=== PATIENT | female | born 1955 | race Caucasian/White ===

== ENCOUNTER 2024-01-09 08:08 | Inpatient (IN) | payer OTHER, MEDICAID, SELFPAY ==
[2024-01-09] VITALS (48 sets, daily range): BP systolic 99–166; BP diastolic 48–142; PULSE 65–109; RESP 16–20; TEMP 36.5–37.6; O2SAT 95–100
--- NOTE | 2024-01-09 08:45 | ED.GENADUL_ITS ---
Discharge Plan Disposition Patient Disposition: Admit to [facility] Condition: Stable Discharge Details Clinical Impression: GI bleeding Admit Date/Time: 01/09/24 12:15 Admit Provider: Alfredo Bain Attending Provider: Alfredo Bain Primary Care Provider: Humza Varghese ED Provider: Joe Echevarria HPI General Date/Time Provider Initiated Documentation: 01/09/24 08:12 . HPI Narrative: 68 year-old female presents to ED today by POV/ambulating with her family with a chief complaint of dark stools, some maroon blood with BM this morning with onset only today- denies history of black/bloody stools. Quality described as not painful, states had some dizziness, but questions whether it was psychogenic from seeing the blood, no radiation to chest pain, palpiations, fainting, fever, recent GI illness, nausea/vomiting. Patient has had a colonoscopy many years ago- endorses history of GI bleeding. Severity is described as unable to quantify- not painful. Palliating factors include nothing specific attempted. Provoking factors include nothing specific. Patient not anticoagulated. Related Data Home Medications Medication Instructions Recorded Confirmed aspirin 81 mg tablet,delayed 81 mg PO DAILY 09/26/13 01/09/24 release duloxetine 60 mg capsule,delayed 60 mg PO DAILY 09/26/13 01/09/24 release (Cymbalta) lisinopril 5 mg tablet 5 mg PO DAILY 09/26/13 01/09/24 metformin 1,000 mg tablet 1,000 mg PO BID 09/26/13 01/09/24 simvastatin 40 mg tablet 40 mg PO DAILY 09/26/13 01/09/24 valacyclovir 500 mg tablet 500 mg PO PRN PRN 09/26/13 01/09/24 (Valtrex) amlodipine 10 mg tablet 10 mg PO DAILY 11/12/23 01/09/24 gabapentin 400 mg capsule 400 mg PO TID 11/12/23 01/09/24 ipratropium 0.5 mg-albuterol 3 mg 3 ml inhalation QID PRN 11/12/23 01/09/24 (2.5 mg base)/3 mL nebulization soln umeclidinium 62.5 mcg-vilanterol 1 inh inhalation DAILY 11/12/23 01/09/24 25 mcg/actuation powdr for inhalation (Anoro Ellipta) albuterol sulfate 90 mcg/actuation 2 puff inhalation Q6H PRN 12/23/23 01/09/24 aerosol inhaler azithromycin 250 mg tablet 250 mg PO DAILY #90 tabs 12/23/23 01/09/24 budesonide 160 mcg-glycopyr 9 2 inh inhalation BID 30 days #10.7 12/23/23 01/09/24 mcg-formot 4.8 mcg/actuation HFA grams inhaler (Breztri Aerosphere) Previous Rx's Medication Instructions Recorded azithromycin 250 mg tablet 250 mg PO DAILY #90 tabs 12/23/23 budesonide 160 mcg-glycopyr 9 2 inh inhalation BID 30 days #10.7 12/23/23 mcg-formot 4.8 mcg/actuation HFA grams inhaler (Breztri Aerosphere) Allergies Allergy/AdvReac Type Severity Reaction Status Date / Time No Known Allergies Allergy Unverified 01/09/24 08:22 General Stated Complaint: GI Bleed ZAC: 3 Review of Systems All systems reviewed & are unremarkable except as noted in HPI and below Exam Narrative Exam Narrative: GENERAL APPEARANCE: Well-nourished, non-toxic, awake and alert, atraumatic, no acute distress. SKIN: Warm, pink, dry, intact, without rashes/lesions/ulcerations. HEAD: Normocephalic, atraumatic, normal hair distribution for gender/age. EYES: Pupils PERRLA, EOMs intact without nystagmus, normal conjunctiva, no exudates on lids/lashes. ENT: Nares patent, no circumoral cyanosis, no facial swelling NECK: Supple, trachea midline, painless cervical ROM. LUNGS/CHEST: Lungs CTA bilaterally- no rhonchi/rales/wheezes diffusely, non- labored respirations, normal A/P diameter, symmetrical expansion, no chest wall deformity HEART (CV/PV): Regular rate and rhythm without murmur, no peripheral edema, no JVD. ABDOMEN: Soft, non-distended, no guarding, no tenderness. MSK: Normal ROM, no swelling/deformity to bilateral UEs or LEs, moving all extremities without weakness, no cyanosis, spine midline without tenderness, normal curvature. NEURO: Mental Status AAOx4 - alert to person, place, time, events No facial droop, no forehead involvement. Motor: No focal weakness - strength 5/5 in bilateral UEs and LEs, proximal and distal, symmetric. Sensory: sensation intact to light touch globally. Gait normal: patient ambulated without ataxia into ED room. PSYCH: euthymic, cooperative, pleasant, appropriate speech Course Vital Signs Vital signs: Vital Signs Temperature 36.5 C 01/09/24 08:19 Pulse 76 01/09/24 08:19 Respiratory Rate 16 01/09/24 08:19 Blood Pressure 99/52 L 01/09/24 08:19 Pulse Oximetry 98 01/09/24 08:19 Temperature 36.5 C 01/09/24 08:19 Temperature Source Temporal Artery Scan 01/09/24 08:19 Pulse 76 01/09/24 08:19 Respiratory Rate 16 01/09/24 08:19 Blood Pressure 99/52 L 01/09/24 08:19 Pulse Oximetry 98 01/09/24 08:19 Oxygen Delivery Method Nasal Cannula 01/09/24 08:19 Oxygen Flow Rate 3 01/09/24 08:19 Medical Decision Making This dictation utilizes [id number] dictation software and may contain unedited grammatical errors. 68 y/o F presents to ED today with a chief complaint of dark stools with some maroon blood in toilet this morning with BM- denies nausea/vomiting, denies fever, denies ABD pain, states no known history of GI bleeding. Patients' medical history: chronic hypoxic respiratory failure on 2-4L O2 01/06, HTN, an emia, COPD, t2DM. Family and social history: Endorses past history of heavy ETOH use, history heavy smoking, no recent travel, no sick contacts. Pertinent exam findings / vital signs include stable nontoxic vitals, benign abdomen, benign cardiopulmonary exam, neuro intact. Differential / pathologies of concern include GI Bleeding, Hemorrhoids, PUD/Gastritis. Diagnostic studies of: -CBC, CMP, Lipase, Lactate, Liver Panel, PT/INR, UA, Mg++, CTA ABD/Pelvis. 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 Suspect lower GI bleeding, she was found to be anemic on arrival with stable vitals, I did provide 1 L IV fluids with a recheck of H&H with a significant drop of over a gram of hemoglobin, CTA of the abdomen pelvis shows no overt GI bleeding, no liver abnormality to account for elevated LFTs. Patient has not provided urine sample by time of admission. I did consult with surgery Dr. Sepulveda, he recommends medicine admit with surgery consult. I spoke with Dr. Bain who accepted the patient for admission, patient is full code. Patient is consented for blood products and is receiving 2 units of packed RBCs here in the department as well as IV Protonix, stable vitals throughout visit. Disposition of GI Bleeding. Patient verbalized understanding of the plan and return to ED criteria and engaged in shared decision making. Medical Records Medical records reviewed: Yes I reviewed the patient's medical records. Imaging Data Radiologic Study: Attestation: I personally reviewed and interpreted this imaging study as follows: Imaging: CT Scan Radiologist's impression: Exam: CTA Abdomen and Pelvis With Contrast Exam date and time: 01/09/2024 10:12 AM Age: 68 years old Clinical indication: Other: Gi bleed; Prior surgery; Surgery date: 6+ months; Surgery type: Cholecystectomy appendectomy hyserectomy TECHNIQUE: Imaging protocol: Computed tomographic angiography of the abdomen and pelvis with contrast. Exam focused on the arteries. 3D rendering (Not supervised by radiologist): MIP and/or 3D reconstructed images were created by the technologist. Contrast material: OMNIPAQUE 350; Contrast volume: 60 ml; Contrast route: INTRAVENOUS (IV); COMPARISON: CT CHEST WO CONTRAST 02/05/2023 2:54 PM FINDINGS: Lungs: There are atelectatic changes in the right lung base. Aorta: There are vascular calcifications of the descending thoracic aorta. Celiac trunk and mesenteric arteries: No occlusion or significant stenosis. Renal arteries: No occlusion or significant stenosis. Right iliac arteries: No occlusion or significant stenosis. Left iliac arteries: No occlusion or significant stenosis. Liver: No mass. Gallbladder and bile ducts: Post cholecystectomy. There is mild intra and extrahepatic biliary dilatation with no obstructing masses, likely post cholecystectomy. Pancreas: Unremarkable. No mass. No ductal dilation. Spleen: Unremarkable. No splenomegaly. Adrenal glands: Unremarkable. No mass. Kidneys and ureters: Multiple left renal cortical hypodense lesions representing cysts measuring up to 1.5 cm. No left hydronephrosis. Post right nephrectomy. Stomach and bowel: Unremarkable. No obstruction. No mucosal thickening. Appendix: Post appendectomy. Intraperitoneal space: Unremarkable. No free air. No significant fluid collection. Lymph nodes: Unremarkable. No enlarged lymph nodes. Urinary bladder: Unremarkable. No mass. Reproductive: Post hysterectomy. Bones/joints: Mild degenerative disease of bilateral sacroiliac joints. Moderate degenerative disease at L2-L3 with disc space narrowing, endplate sclerosis, endplate osteophytes and cystic changes. There is mild retrolisthesis at L2-L3. Posterior disc bulge causing mild L2-L3 thecal sac compression. Mild bilateral hip joint degenerative disease. Mild degenerative disease of the symphysis pubis. There is a curvature of the lumbar spine convex to the left. Soft tissues: Unremarkable. Other findings: There are vascular calcifications. IMPRESSION: 1. No evidence of active GI bleed. 2. No intra-abdominal hematomas. Dictated and Authenticated by: Jovanni Bledsoe MD. Ordering:JORGE Diaz MD Lab Data Lab results reviewed: Yes I reviewed the patient's lab results. Labs: Laboratory Tests Range/Units 01/09/24 01/09/24 08:40 11:07 WBC (4.4-10.8) 10^3/uL 7.25 RBC (3.93-5.22) 10^6/uL 2.83 L Hgb (11.2-15.7) g/dL 8.3 L 7.1 L Hct (36.0-46.0) % 26.2 L 22.6 L MCV (80-95) fL 93 MCH (27.0-33.0) pg 29.3 MCHC (32.0-36.0) % 31.7 L RDW (11.7-14.6) % 16.3 H Plt Count (130-400) 10^3/uL 304 216 MPV (8.0-11.0) fL 8.6 Immature Gran % 0.1 Neutrophils % 54.1 Lymphocytes % 31.3 Monocytes % 7.3 Eosinophils % 6.5 Basophils % 0.7 Nucleated RBC % (0.0-0.3) % 0.0 Absolute Neutrophils (1.2-6.7) 10^3/uL 3.92 Absolute Lymphocytes (1.2-3.4) 10^3/uL 2.27 Absolute Monocytes (0.1-0.8) 10^3/uL 0.53 Absolute Eosinophils (0.0-0.7) 10^3/uL 0.47 Absolute Basophils (0.0-0.2) 10^3/uL 0.05 ESR (0-30) mm/hr 8 PT (9.1-11.1) sec 10.5 INR (0.9-1.1) 1.0 APTT (23.6-32.8) sec 25.5 VBG Lactate (0.6-1.4) mmol/L 1.8 H Sodium (136-145) mmol/L 140 Potassium (3.5-5.1) mmol/L 4.9 Chloride (98-107) mmol/L 104 Carbon Dioxide (21.0-32.0) mmol/L 29.6 Anion Gap (3-11) mmol/L 6.4 BUN (7-18) mg/dL 31 H Creatinine (0.55-1.02) mg/dL 1.3 H Est GFR (CKD-EPI 2020) (mL/min/1.73m2) 44.51 Glucose (74-106) mg/dL 133 H Calcium (8.5-10.1) mg/dL 8.3 L Magnesium (1.8-2.4) mg/dL 2.2 Total Bilirubin (0.2-1.0) mg/dL 0.5 Conjugated Bilirubin (0.0-0.2) mg/dL 0.2 AST (15-37) U/L 283 H ALT (14-59) U/L 393 H Alkaline Phosphatase (46-116) U/L 285 H C-Reactive Protein (<or=0.5) mg/dL < 0.50 Total Protein (6.4-8.2) g/dL 7.1 Albumin (3.4-5.0) g/dL 3.5 Lipase (16-77) U/L 20 Patient ABO/Rh O Positive Antibody Screen NEGATIVE Quality:SDOH Health Related Social Needs: No Data to Display PFSH All Active Problems (Updated 01/09/24 @ 12:23 by CIRILO Marrero) GI bleeding (Chronic) Former cigarette smoker (Acute) Chronic hypoxic respiratory failure (Acute) Polysubstance abuse (Acute) Pneumonia (Acute) Nicotine dependence (Acute) Joint pain (Acute) Dyslipidemia (Acute) Diabetes mellitus (Chronic) COPD (chronic obstructive pulmonary disease) (Chronic) Benign essential hypertension (Acute) Anemia (Chronic) ADHD (Acute) Acute respiratory failure with hypercapnia (Acute) with hypoxia Abnormal weight loss (Acute) Medical History (Updated 01/09/24 @ 12:23 by CIRILO Marrero) COVID-19 Hx of mammogram 05/30/2011 Surgical History (Updated 11/12/23 @ 11:33 by Vandana Leger) History of cholecystectomy History of appendectomy Hx of total hysterectomy 11/09/98 History of colonoscopy 02/10/07 Cataract cataract surgery left eye 09/29/13 Family History (Updated 11/12/23 @ 11:16 by Vandana Leger) Sister Coronary arteriosclerosis Diabetes HLP (hyperkeratosis lenticularis perstans) History of cancer Mother Myocardial infarction History of cancer Father History of cancer Myocardial infarction Social History (Updated 11/12/23 @ 11:12 by Vandana Leger) Smoking/Tobacco Use Status: Former Tobacco Use Smoking risk assessment performed?: Yes Alcohol Intake: former Details: Quit in 2010.Hx of ETOH abuse. Drug use: Never Additional Social history: Former tobacco user:1/2ppd Pt states hasn't smoked in 4 days. Comments started at age 12. 1.5ppd>30yrs
[2024-01-09] MEDS: Normal Saline 1,000 ML 1000 ML IV (08:56)
[2024-01-09 08:58] LABS: Lactate 1.8 mmol/L (0.6-1.4)
[2024-01-09 09:00] LABS: Abs Immature Grans 0.01 10^3/uL (0.0-0.06); Absolute Basophil Count 0.05 10^3/uL (0.0-0.2); Absolute Eosinophil Count 0.47 10^3/uL (0.0-0.7); Absolute Lymphocyte Count 2.27 10^3/uL (1.2-3.4); Absolute Monocyte Count 0.53 10^3/uL (0.1-0.8); Absolute Neutrophil Count 3.92 10^3/uL (1.2-6.7); Basophils % 0.7; Eosinophils % 6.5; HCT 26.2 % (36.0-46.0); HGB 8.3 g/dL (11.2-15.7); Immature Grans % 0.1; Lymphocytes % 31.3; MCH 29.3 pg (27.0-33.0); MCHC 31.7 % (32.0-36.0); MCV 93 fL (80-95); MPV 8.6 fL (8.0-11.0); Monocytes % 7.3; Neutrophils % 54.1; Platelet Count 304 10^3/uL (130-400); RBC 2.83 10^6/uL (3.93-5.22); RDW 16.3 % (11.7-14.6); RDW-SD 54.8 fL; WBC 7.25 10^3/uL (4.4-10.8)
[2024-01-09 09:02] LABS: ESR 8 mm/hr (0-30)
[2024-01-09 09:13] LABS: PTT Activated 25.5 sec (23.6-32.8); Prothrombin Time 10.5 sec (9.1-11.1)
[2024-01-09 09:16] LABS: ALT 393 U/L (14-59); AST 283 U/L (15-37); Albumin 3.5 g/dL (3.4-5.0); Alkaline Phosphatase 285 U/L (46-116); Anion Gap 6.4 mmol/L (3-11); BUN 31 mg/dL (7-18); Bilirubin, Direct 0.2 mg/dL (0.0-0.2); Bilirubin, Total 0.5 mg/dL (0.2-1.0); C-Reactive Protein < 0.50 mg/dL (<or=0.5); CO2 29.6 mmol/L (21.0-32.0); CREATININE 1.3 mg/dL (0.55-1.02); Calcium 8.3 mg/dL (8.5-10.1); Chloride 104 mmol/L (98-107); Estimated GFR 44.51 (mL/min/1.73m2); Glucose 133 mg/dL (74-106); Lipase 20 U/L (16-77); Magnesium 2.2 mg/dL (1.8-2.4); Potassium 4.9 mmol/L (3.5-5.1); Sodium 140 mmol/L (136-145); Total Protein 7.1 g/dL (6.4-8.2)
--- NOTE | 2024-01-09 09:44 | DI.CT_ITS ---
Exam(s) CT ABDOMEN PELVIS CTA EXAM: CT ABDOMEN PELVIS CTA CLINICAL HISTORY: GI Bleeding. TECHNIQUE: Imaging Protocol: Axial CT angiography was performed with multi-slice acquisition and m ulti-planar, MIP and/or 3D reconstructions. Pre contrast images and venous phase images also perform ed. CONTRAST MATERIAL: Intravenous: Omnipaque 350 Contrast volume:100 mL Oral: no COMPARISON: CT ABD PELVIS WITH CONTRAST from 04/09/[address] CHEST WO CONTRAST from 02/05/2023 FINDINGS: Vascular Structures: Celiac [place]:No evidence of stenosis. SMA: No evidence of stenosis. Left renal artery: No evidence of stenosis. There is a single renal artery perfusing the left kidney. Aorta: No aneurysm. No dissection. Atherosclerotic changes, moderate. No significant stenosis. Iliac Arteries: No evidence of stenosis. Mild tomato atherosclerotic changes. Common Femoral Arteries: No evidence of stenosis. Soft Tissues:Unremarkable. Lung bases:No acute findings. Liver: Normal size. Normal density. No measurable mass. Metallic densities again noted posterior t o liver. Gallbladder and biliary tract: Status post cholecystectomy. Mild biliary dilation, unchanged. Consi stent with post cholecystectomy.. Pancreas: Normal density, no abnormal calcifications or inflammatory process. Spleen: Normal. Kidneys: Single left kidney again noted. No obstructive uropathy. No suspicious masses seen. No evid ence of calculi. Retroaortic left renal vein. Adrenal glands: No masses seen. Bladder: No gross wall thickening. No evidence of calculi. No evidence of mass. Bowel: Cecum again lies low in the posterior pelvis. Scattered diverticula. No evidence of divertic ulitis. Normal quantity of stool. No obstruction or bowel wall thickening. Peritoneal cavity: No ascites. No focal collection. No mesenteric inflammatory response. Bones: No acute findings. Degenerative changes at L2-3. Mild levoscoliosis. Lymph nodes: Within normal limits. Reproductive: Unremarkable. IMPRESSION: No evidence of active GI bleed. No areas of bowel wall thickening or inflammation.. Mild diverticul osis. No evidence of diverticulitis. Moderate atherosclerotic changes of the abdominal aorta without significant stenosis. No significant branch vessel stenosis. RADIATION DOSE DELIVERED: Total DLP DATA REPOSITORY: All CT scans at this facility are submitted to the National Radiology Data Registry (NRDR) Dose Index Registry (DIR) with the [employer] (ACR). RADIATION OPTIMIZATION: All CT scans at this facility use at least one of these dose optimization te chniques: automated exposure control; mA and/or kV adjustment per patient size (includes targeted exa ms where dose is matched to clinical indication); or iterative reconstruction.
[2024-01-09] MEDS: Normal Saline - Diluent 50 ML VIAL IJ (10:18)
[2024-01-09] MEDS: Omnipaque 350 MG/ML 100 ML BTL IJ (10:20)
--- NOTE | 2024-01-09 11:03 | DI.VRAD_ITS ---
PROCEDURE INFORMATION: Exam: CTA Abdomen and Pelvis With Contrast Exam date and time: 01/09/2024 10:12 AM Age: 68 years old Clinical indication: Other: Gi bleed; Prior surgery; Surgery date: 6+ months; Surgery type: Cholecystectomy appendectomy hyserectomy TECHNIQUE: Imaging protocol: Computed tomographic angiography of the abdomen and pelvis with contrast. Exam focused on the arteries. 3D rendering (Not supervised by radiologist): MIP and/or 3D reconstructed images were created by the technologist. Contrast material: OMNIPAQUE 350; Contrast volume: 60 ml; Contrast route: INTRAVENOUS (IV); COMPARISON: CT CHEST WO CONTRAST 02/05/2023 2:54 PM FINDINGS: Lungs: There are atelectatic changes in the right lung base. Aorta: There are vascular calcifications of the descending thoracic aorta. Celiac trunk and mesenteric arteries: No occlusion or significant stenosis. Renal arteries: No occlusion or significant stenosis. Right iliac arteries: No occlusion or significant stenosis. Left iliac arteries: No occlusion or significant stenosis. Liver: No mass. Gallbladder and bile ducts: Post cholecystectomy. There is mild intra and extrahepatic biliary dilatation with no obstructing masses, likely post cholecystectomy. Pancreas: Unremarkable. No mass. No ductal dilation. Spleen: Unremarkable. No splenomegaly. Adrenal glands: Unremarkable. No mass. Kidneys and ureters: Multiple left renal cortical hypodense lesions representing cysts measuring up to 1.5 cm. No left hydronephrosis. Post right nephrectomy. Stomach and bowel: Unremarkable. No obstruction. No mucosal thickening. Appendix: Post appendectomy. Intraperitoneal space: Unremarkable. No free air. No significant fluid collection. Lymph nodes: Unremarkable. No enlarged lymph nodes. Urinary bladder: Unremarkable. No mass. Reproductive: Post hysterectomy. Bones/joints: Mild degenerative disease of bilateral sacroiliac joints. Moderate degenerative disease at L2-L3 with disc space narrowing, endplate sclerosis, endplate osteophytes and cystic changes. There is mild retrolisthesis at L2-L3. Posterior disc bulge causing mild L2-L3 thecal sac compression. Mild bilateral hip joint degenerative disease. Mild degenerative disease of the symphysis pubis. There is a curvature of the lumbar spine convex to the left. Soft tissues: Unremarkable. Other findings: There are vascular calcifications. IMPRESSION: 1. No evidence of active GI bleed. 2. No intra-abdominal hematomas. Dictated and Authenticated by: Jovanni Bledsoe MD. Ordering:JORGE Diaz MD
[2024-01-09 11:18] LABS: HCT 22.6 % (36.0-46.0); HGB 7.1 g/dL (11.2-15.7); Platelet Count 216 10^3/uL (130-400)
[2024-01-09] MEDS: diphenhydrAMINE 25 MG CAP PO (12:25)
[2024-01-09] MEDS: Pantoprazole 40 MG VIAL 80 MG IVP (12:26)
--- NOTE | 2024-01-09 13:56 | W.PM.HP.N ---
Date of service: 01/09/24 Time of Service: 13:56 Assessment and Plan Assessment and plan (1) GI bleeding: Status: Chronic Assessment and plan: Per my discussion with the general surgeon Dr. Go Sepulveda, he does not plan on doing upper and lower endoscopy during this hospitalization unless she has a severe life-threatening bleed which cannot be controlled. I will treat the patient with PPI GI prophylaxis to protect her upper GI tract. Presuming that this is lower GI bleeding based on her description of maroon-colored stool with clots and the lack of abdominal pain. This is probably diverticular bleeding however cannot exclude possible underlying malignancy given former smoking history. Last colonoscopy was more than 10 years ago. I explained her that we would treat the bleeding with transfusions and arrange for outpatient follow-up with the surgeon for upper and lower endoscopy. Patient is completing her second unit of blood. Will check an H&H now and monitor for 6 hours for the next 18 hours and if there is no further bleeding she will be discharged home tomorrow. Qualifiers: GI bleed type/associated pathology: anorectal hemorrhage Qualified Code(s): K62.5 - Hemorrhage of anus and rectum (2) Diabetes mellitus: Status: Chronic Assessment and plan: I will hold her metformin for now and monitor her blood sugars ACHS and cover with low-dose NovoLog sliding scale. Qualifiers: Diabetes mellitus complication status: without complication Diabetes mellitus terminal superintendent insulin use: without skilled nursing use Diabetes mellitus type: type 2 Qualified Code(s): E11.9 - Type 2 diabetes mellitus without complications (3) COPD (chronic obstructive pulmonary disease): Status: Chronic Assessment and plan: Not currently experiencing acute exacerbation. She is home oxygen dependent at 3 L at rest and 4 L with activity but is not chronically on systemic corticosteroids although she uses inhaled corticosteroids. Qualifiers: COPD type: unspecified COPD Qualified Code(s): J44.9 - Chronic obstructive pulmonary disease, unspecified (4) Benign essential hypertension: Status: Acute Assessment and plan: Monitor blood pressure continue her current home blood pressure medications unless she experiences significant hypotension from a recurrent bleed. (5) DVT prophylaxis: Status: Acute Assessment and plan: Not a candidate for chemoprophylaxis given her acute rectal bleeding. Will use KEVIN hose and SCDs (6) Discharge planning issues: Status: Acute Assessment and plan: I confirm with the patient as she is a full code in the event of cardiopulmonary arrest History of Present Illness History of Present Illness Chief Complaint: rectal bleeding Narrative: 68 yr old female former smoker (just quit 3 mo), PMH of COPD, DM II, HTN, who presents w/ acute rectal bleeding that began after breakfast this morning. She had maroon bloody BM but no bright red bleeding. She denies any fever, rigors, abdominal pains, nausea or vomiting and no hematemesis. She denies having any other episodes of bleeding. She takes ASA 81 mg daily but does not regularly use NSAID's. Last c-scope was over 10 yrs ago. Evaluation in the ED included labs and CTA of abdomen and pelvis. Labs revealed her to be anemic w/ Hb of 8.3 gm which dropped to 7.1 gm before being transfused 2 units to Hb 9.7 gm. CTA demonstrated the following: FINDINGS: Vascular Structures: Celiac [place]:No evidence of stenosis. SMA: No evidence of stenosis. Left renal artery: No evidence of stenosis. There is a single renal artery perfusing the left kidney. Aorta: No aneurysm. No dissection. Atherosclerotic changes, moderate. No significant stenosis. Iliac Arteries: No evidence of stenosis. Mild tomato atherosclerotic changes. Common Femoral Arteries: No evidence of stenosis. Soft Tissues:Unremarkable. Lung bases:No acute findings. Liver: Normal size. Normal density. No measurable mass. Metallic densities again noted posterior to liver. Gallbladder and biliary tract: Status post cholecystectomy. Mild biliary dilation, unchanged. Consistent with post cholecystectomy.. Pancreas: Normal density, no abnormal calcifications or inflammatory process. Spleen: Normal. Kidneys: Single left kidney again noted. No obstructive uropathy. No suspicious masses seen. No evidence of calculi. Retroaortic left renal vein. Adrenal glands: No masses seen. Bladder: No gross wall thickening. No evidence of calculi. No evidence of mass. Bowel: Cecum again lies low in the posterior pelvis. Scattered diverticula. No evidence of diverticulitis. Normal quantity of stool. No obstruction or bowel wall thickening. Peritoneal cavity: No ascites. No focal collection. No mesenteric inflammatory response. Bones: No acute findings. Degenerative changes at L2-3. Mild levoscoliosis. Lymph nodes: Within normal limits. Reproductive: Unremarkable. IMPRESSION: No evidence of active GI bleed. No areas of bowel wall thickening or inflammation.. Mild diverticulosis. No evidence of diverticulitis. Moderate atherosclerotic changes of the abdominal aorta without significant stenosis. No significant branch vessel stenosis. The ED provider contacted Dr. Go Sepulveda, general surgeon, who recommended hospital medicine admission, transfusion and serial hemogram but recommend holding on doing inpatient endoscpy unless it became life threatening bleed and to plan for outpatient upper and lower endoscopy. I have put her on protonix prophylactically and held her ASA. She states that she feels fine and has not had any rectal bleeding since coming to the hospital. Review of Systems All systems reviewed & are unremarkable except as noted in HPI and below Cardiovascular Cardiovascular: Reports system reviewed and no additional complaints, except as documented Respiratory Respiratory: Reports system reviewed and no additional complaints, except as documented Gastrointestinal Gastrointestinal: Reports as per HPI PFSH All Active Problems (Updated 01/09/24 @ 17:44 by Alfredo Bain MD) DVT prophylaxis (Acute) Discharge planning issues (Acute) GI bleeding (Chronic) Former cigarette smoker (Acute) Chronic hypoxic respiratory failure (Acute) Polysubstance abuse (Acute) Pneumonia (Acute) Nicotine dependence (Acute) Joint pain (Acute) Dyslipidemia (Acute) Diabetes mellitus (Chronic) COPD (chronic obstructive pulmonary disease) (Chronic) Benign essential hypertension (Acute) Anemia (Chronic) ADHD (Acute) Acute respiratory failure with hypercapnia (Acute) with hypoxia Abnormal weight loss (Acute) Medical History (Updated 01/09/24 @ 17:44 by Alfredo Bain MD) COVID-19 Hx of mammogram 05/30/2011 Surgical History (Updated 11/12/23 @ 11:33 by Vandana Leger) History of cholecystectomy History of appendectomy Hx of total hysterectomy 11/09/98 History of colonoscopy 02/10/07 Cataract cataract surgery left eye 09/29/13 Family History (Updated 11/12/23 @ 11:16 by Vandana Leger) Sister Coronary arteriosclerosis Diabetes HLP (hyperkeratosis lenticularis perstans) History of cancer Mother Myocardial infarction History of cancer Father History of cancer Myocardial infarction Social History (Updated 11/12/23 @ 11:12 by Vandana Leger) Smoking/Tobacco Use Status: Former Tobacco Use Smoking risk assessment performed?: Yes Alcohol Intake: former Details: Quit in 2010.Hx of ETOH abuse. Drug use: Never Housing: apartment Additional Social history: Former tobacco user:1/2ppd Pt states hasn't smoked in 4 days. Comments started at age 12. 1.5ppd>30yrs Meds Allergies and Home Medications Allergies Allergy/AdvReac Type Severity Reaction Status Date / Time No Known Allergies Allergy Unverified 01/09/24 08:22 Home Medications Medication Instructions Recorded Confirmed Type aspirin 81 mg tablet,delayed 81 mg PO DAILY 09/26/13 01/09/24 History release duloxetine 60 mg capsule,delayed 60 mg PO DAILY 09/26/13 01/09/24 History release (Cymbalta) lisinopril 5 mg tablet 5 mg PO DAILY 09/26/13 01/09/24 History metformin 1,000 mg tablet 1,000 mg PO BID 09/26/13 01/09/24 History simvastatin 40 mg tablet 40 mg PO DAILY 09/26/13 01/09/24 History valacyclovir 500 mg tablet 500 mg PO PRN PRN 09/26/13 01/09/24 History (Valtrex) amlodipine 10 mg tablet 10 mg PO DAILY 11/12/23 01/09/24 History gabapentin 400 mg capsule 400 mg PO TID 11/12/23 01/09/24 History ipratropium 0.5 mg-albuterol 3 mg 3 ml inhalation QID PRN 11/12/23 01/09/24 History (2.5 mg base)/3 mL nebulization soln umeclidinium 62.5 mcg-vilanterol 1 inh inhalation DAILY 11/12/23 01/09/24 History 25 mcg/actuation powdr for inhalation (Anoro Ellipta) albuterol sulfate 90 mcg/actuation 2 puff inhalation Q6H PRN 12/23/23 01/09/24 History aerosol inhaler azithromycin 250 mg tablet 250 mg PO DAILY #90 tabs 12/23/23 01/09/24 Rx budesonide 160 mcg-glycopyr 9 2 inh inhalation BID 30 days #10.7 12/23/23 01/09/24 Rx mcg-formot 4.8 mcg/actuation HFA grams inhaler (Breztri Aerosphere) Exam Narrative Exam Narrative: Elderly white female who appears older than her stated age of 68 in no acute respiratory distress alert and orient x 3 lying in bed. She currently denies any nausea or vomiting or abdominal pain or chest pain or dyspnea. HEENT is remarkable for a dentulous state Neck is supple no JVD, normal range of motion, no adenopathy, no carotid bruits, normal carotid pulses Lungs with prolonged expiratory phase without rhonchi wheezes or rales Heart is regular rate and rhythm with a harsh grade 2-3/6 systolic murmur along the aortic outflow tract Abdomen soft and nontender no bruits no organomegaly no masses Extremities without peripheral cyanosis or edema Neuro exam grossly intact no focal cranial nerve deficits no focal motor or sensory deficits Digital rectal exam deferred since this was already performed the emergency department. Per CIRILO Reardon he could not feel any rectal mass or hemorrhoids. Results Imaging Abdomen CT scan report/results: report reviewed (See below) Imaging Studies: FINDINGS: Vascular Structures: Celiac [place]:No evidence of stenosis. SMA: No evidence of stenosis. Left renal artery: No evidence of stenosis. There is a single renal artery perfusing the left kidney. Aorta: No aneurysm. No dissection. Atherosclerotic changes, moderate. No significant stenosis. Iliac Arteries: No evidence of stenosis. Mild tomato atherosclerotic changes. Common Femoral Arteries: No evidence of stenosis. Soft Tissues:Unremarkable. Lung bases:No acute findings. Liver: Normal size. Normal density. No measurable mass. Metallic densities again noted posterior to liver. Gallbladder and biliary tract: Status post cholecystectomy. Mild biliary dilation, unchanged. Consistent with post cholecystectomy.. Pancreas: Normal density, no abnormal calcifications or inflammatory process. Spleen: Normal. Kidneys: Single left kidney again noted. No obstructive uropathy. No suspicious masses seen. No evidence of calculi. Retroaortic left renal vein. Adrenal glands: No masses seen. Bladder: No gross wall thickening. No evidence of calculi. No evidence of mass. Bowel: Cecum again lies low in the posterior pelvis. Scattered diverticula. No evidence of diverticulitis. Normal quantity of stool. No obstruction or bowel wall thickening. Peritoneal cavity: No ascites. No focal collection. No mesenteric inflammatory response. Bones: No acute findings. Degenerative changes at L2-3. Mild levoscoliosis. Lymph nodes: Within normal limits. Reproductive: Unremarkable. IMPRESSION: No evidence of active GI bleed. No areas of bowel wall thickening or inflammation.. Mild diverticulosis. No evidence of diverticulitis. Moderate atherosclerotic changes of the abdominal aorta without significant stenosis. No significant branch vessel stenosis. Labs 01/09/24 18:15 01/09/24 08:40 Labs: Laboratory Results - last 24 hr 01/09/24 01/09/24 08:40 11:07 WBC 7.25 RBC 2.83 L Hgb 8.3 L 7.1 L Hct 26.2 L 22.6 L MCV 93 MCH 29.3 MCHC 31.7 L RDW 16.3 H Plt Count 304 216 MPV 8.6 Immature Gran % 0.1 Neutrophils % 54.1 Lymphocytes % 31.3 Monocytes % 7.3 Eosinophils % 6.5 Basophils % 0.7 Nucleated RBC % 0.0 Absolute Neutrophils 3.92 Absolute Lymphocytes 2.27 Absolute Monocytes 0.53 Absolute Eosinophils 0.47 Absolute Basophils 0.05 ESR 8 PT 10.5 INR 1.0 APTT 25.5 VBG Lactate 1.8 H Sodium 140 Potassium 4.9 Chloride 104 Carbon Dioxide 29.6 Anion Gap 6.4 BUN 31 H Creatinine 1.3 H Est GFR (CKD-EPI 2020) 44.51 Glucose 133 H Calcium 8.3 L Magnesium 2.2 Total Bilirubin 0.5 Conjugated Bilirubin 0.2 AST 283 H ALT 393 H Alkaline Phosphatase 285 H C-Reactive Protein < 0.50 Total Protein 7.1 Albumin 3.5 Lipase 20 Patient ABO/Rh O Positive Antibody Screen NEGATIVE Crossmatch See Detail Last Vital Signs Temp 37.6 C H 01/09/24 13:45 Pulse 70 01/09/24 13:45 Resp 18 01/09/24 13:45 BP 122/64 01/09/24 13:45 Pulse Ox 100 01/09/24 13:45 Time Spent Time spent with Patient: 55-74 minutes Time was spent: preparing to see the patient(eg.review tests), obtaining and/or reviewing separately otained hiistory, ordering medications,tests, procedures, referring, communicating with other health hearing healthcare practitioner, indepentently interpreting results, counseling the patient and care coordination
[2024-01-09 15:11] LABS: Bilirubin Negative (Negative); Blood Moderate (Negative); Clarity Clear (Clear); Glucose Negative (Negative); Ketones Negative (Negative); Leukocyte Esterase Negative (Negative); Nitrite Negative (Negative); Specific Gravity 1.015 (1.005-1.025); Urobilinogen 0.2 mg/dL (Up to 0.2)
[2024-01-09 15:18] LABS: Bacteria Negative HPF (Negative); C & S Indicated? No; Casts Negative LPF (Negative); Crystals Negative HPF (Negative); Epithelial Cells Few HPF (Negative); Mucus Negative (Negative); WBC 0-2 HPF (0-5)
[2024-01-09] MEDS: Gabapentin 300 MG CAP PO ×2 (15:20→19:54)
--- NOTE | 2024-01-09 16:35 | RESPIRATORY ---
Patient wears 3-4L O2 at baseline at all times. DME: [facility]
--- NOTE | 2024-01-09 16:58 | W.SURGCON ---
Date of service: 01/09/24 Time of Service: 13:00 Assessment and Plan Assessment and plan (1) GI bleeding: Status: Chronic Assessment and plan: 68-year-old woman with GI bleeding. Source could be upper or lower but statistically upper GI sources are more common. Patient is reportedly hemodynamically stable. It is unclear what her baseline hemoglobin is. She did have a drop in hemoglobin but after IV fluid administration. Recommendations are: # ICU admission to the hospitalist service: medical management to include maximum?dose PPI therapy, sucralfate, somatostatin, etc. # Serial hemoglobin checks every 6 hours # Crossmatch, check coagulation factors/antiplatelet therapies and correct them as needed - hold/reverse anticoagulation. # Transfuse as needed for hemoglobin target greater than 7 unless - symptomatic, unstable or significant cardiac history: transfuse for hemoglobin greater than 9. # Minimal IV fluid resuscitation /permissive hypotension - treat hypovolemia with blood products # Endoscopy and colonoscopy indicated for bleeding that does not respond to transfusion and correction of anticoagulation/coagulopathy # Continued hemorrhage, not able to be controlled with endoscopy, must be considered for transfer and IR angioembolization efforts. # Emergency surgery is indicated as a last resort for extreme, life-saving measures only. # Surgery will follow along until hemoglobin stabilizes and bleeding subsides. Depending on circumstances and history, outpatient/scheduled upper and lower endoscopy should be considered to try to establish the source. Qualifiers: GI bleed type/associated pathology: anorectal hemorrhage Qualified Code(s): K62.5 - Hemorrhage of anus and rectum History of Present Illness Narrative: Called by ER provider to consult on GI bleeding. Patient reports patient saw a little bit of blood in her stools this morning. Patient is hemodynamically stable and has a hemoglobin in the 8 range and it dropped to the 7 range on a later read?check after IV fluid hydration. Per ER provider, patient has significant ETOH intake. Has no clinical complaints or symptoms. PFSH All Active Problems (Updated 01/09/24 @ 17:44 by Alfredo Bain MD) DVT prophylaxis (Acute) Discharge planning issues (Acute) GI bleeding (Chronic) Former cigarette smoker (Acute) Chronic hypoxic respiratory failure (Acute) Polysubstance abuse (Acute) Pneumonia (Acute) Nicotine dependence (Acute) Joint pain (Acute) Dyslipidemia (Acute) Diabetes mellitus (Chronic) COPD (chronic obstructive pulmonary disease) (Chronic) Benign essential hypertension (Acute) Anemia (Chronic) ADHD (Acute) Acute respiratory failure with hypercapnia (Acute) with hypoxia Abnormal weight loss (Acute) Medical History (Updated 01/09/24 @ 17:44 by Alfredo Bain MD) COVID-19 Hx of mammogram 05/30/2011 Surgical History (Updated 11/12/23 @ 11:33 by Vandana Leger) History of cholecystectomy History of appendectomy Hx of total hysterectomy 11/09/98 History of colonoscopy 02/10/07 Cataract cataract surgery left eye 09/29/13 Family History (Updated 11/12/23 @ 11:16 by Vandana Leger) Sister Coronary arteriosclerosis Diabetes HLP (hyperkeratosis lenticularis perstans) History of cancer Mother Myocardial infarction History of cancer Father History of cancer Myocardial infarction Social History (Updated 11/12/23 @ 11:12 by Vandana Leger) Smoking/Tobacco Use Status: Former Tobacco Use Smoking risk assessment performed?: Yes Alcohol Intake: former Details: Quit in 2010.Hx of ETOH abuse. Drug use: Never Housing: apartment Additional Social history: Former tobacco user:1/2ppd Pt states hasn't smoked in 4 days. Comments started at age 12. 1.5ppd>30yrs Exam Narrative Exam Narrative: Per ER provider: General: She is not toxic and is interactive and alert Vital signs: Within acceptable limits Abdomen: Soft, nondistended and nontender Results Last Vital Signs Temp 97.9 F 01/09/24 15:55 Pulse 70 01/09/24 15:55 Resp 18 01/09/24 15:55 BP 118/60 01/09/24 15:55 Pulse Ox 100 01/09/24 15:55 Labs 01/09/24 11:07 01/09/24 08:40 Labs: Laboratory Results - last 24 hr 01/09/24 01/09/24 01/09/24 08:40 11:07 15:00 WBC 7.25 RBC 2.83 L Hgb 8.3 L 7.1 L Hct 26.2 L 22.6 L MCV 93 MCH 29.3 MCHC 31.7 L RDW 16.3 H Plt Count 304 216 MPV 8.6 Immature Gran % 0.1 Neutrophils % 54.1 Lymphocytes % 31.3 Monocytes % 7.3 Eosinophils % 6.5 Basophils % 0.7 Nucleated RBC % 0.0 Absolute Neutrophils 3.92 Absolute Lymphocytes 2.27 Absolute Monocytes 0.53 Absolute Eosinophils 0.47 Absolute Basophils 0.05 ESR 8 PT 10.5 INR 1.0 APTT 25.5 VBG Lactate 1.8 H Sodium 140 Potassium 4.9 Chloride 104 Carbon Dioxide 29.6 Anion Gap 6.4 BUN 31 H Creatinine 1.3 H Est GFR (CKD-EPI 2020) 44.51 Glucose 133 H Calcium 8.3 L Magnesium 2.2 Total Bilirubin 0.5 Conjugated Bilirubin 0.2 AST 283 H ALT 393 H Alkaline Phosphatase 285 H C-Reactive Protein < 0.50 Total Protein 7.1 Albumin 3.5 Lipase 20 Urine Color Yellow Urine Clarity Clear Urine pH 6.0 Ur Specific [place] 1.015 Urine Protein Negative Urine Ketones Negative Urine Blood Moderate H Urine Nitrite Negative Urine Bilirubin Negative Urine Urobilinogen 0.2 Ur Leukocyte Esterase Negative Urine RBC 3-5 H Urine WBC 0-2 Ur Epithelial Cells Few Urine Crystals Negative Urine Bacteria Negative Urine Casts Negative Urine Mucus Negative Ur Culture Indicated? No Urine Glucose Negative Patient ABO/Rh O Positive Antibody Screen NEGATIVE Crossmatch See Detail
[2024-01-09 18:21] LABS: HCT 30.3 % (36.0-46.0)
[2024-01-09 18:22] LABS: HGB 9.7 g/dL (11.2-15.7)
[2024-01-09] MEDS: Simvastatin 40 MG TAB PO (19:54)
[2024-01-09] MEDS: Pantoprazole 40 MG VIAL IVP (23:57)
[2024-01-10 03:35] VITALS: BP 118/69; PULSE 80; RESP 16; TEMP 36.7; O2SAT 90
[2024-01-10 06:34] LABS: Abs Immature Grans 0.01 10^3/uL (0.0-0.06); Absolute Basophil Count 0.03 10^3/uL (0.0-0.2); Absolute Eosinophil Count 0.45 10^3/uL (0.0-0.7); Absolute Lymphocyte Count 1.83 10^3/uL (1.2-3.4); Absolute Neutrophil Count 3.38 10^3/uL (1.2-6.7); Basophils % 0.5; Eosinophils % 7.3; HCT 30.5 % (36.0-46.0); HGB 9.8 g/dL (11.2-15.7); Immature Grans % 0.2; Lymphocytes % 29.5; MCH 28.8 pg (27.0-33.0); MCHC 32.1 % (32.0-36.0); MCV 90 fL (80-95); MPV 8.2 fL (8.0-11.0); Monocytes % 8.1; Neutrophils % 54.4; Platelet Count 220 10^3/uL (130-400); RDW-SD 52.6 fL
[2024-01-10 07:06] LABS: ALT 231 U/L (14-59); AST 109 U/L (15-37); Alkaline Phosphatase 205 U/L (46-116); BUN 25 mg/dL (7-18); Bilirubin, Total 0.6 mg/dL (0.2-1.0); CREATININE 1.1 mg/dL (0.55-1.02); Calcium 8.5 mg/dL (8.5-10.1); Chloride 107 mmol/L (98-107); Estimated GFR 54.39 (mL/min/1.73m2); Glucose 101 mg/dL (74-106); Potassium 4.5 mmol/L (3.5-5.1); Sodium 143 mmol/L (136-145)
[2024-01-10 07:45] VITALS: BP 120/64; PULSE 74; RESP 16; TEMP 37.7; O2SAT 100
[2024-01-10] MEDS: amLODIPine 10 MG TAB PO (07:46)
[2024-01-10] MEDS: Gabapentin 300 MG CAP PO ×2 (07:46→14:55)
[2024-01-10] MEDS: DULoxetine 30 MG CAP 60 MG PO (07:46)
[2024-01-10] MEDS: Lisinopril 5 MG TAB PO (07:46)
[2024-01-10] MEDS: Azithromycin 250 MG TAB PO (07:46)
--- NOTE | 2024-01-10 08:23 | NUR.NOTE ---
Patient has given verbal consent that the hospital can look at external medication history. Nursing Note:
--- NOTE | 2024-01-10 08:31 | NUR.NOTE ---
Nursing Note: Pharmacy had a question about her home meds
--- NOTE | 2024-01-10 08:47 | PGE_ITS ---
Date of Service Date of service: 01/10/24 Time of Service: 08:48 Assessment and Plan Assessment and plan (1) GI bleeding: Status: Chronic Assessment and plan: 68-year-old woman who had melanotic stools. She is hemodynamically stable and has not had any more bleeding clinically or on her laboratory work. Surgery signing off at this time. I did offer the patient to have short?interval, outpatient follow-up in the office where we can schedule her for an upper and lower endoscopy. I recommended that this be done in the next couple of weeks ideally but that ultimately it is up to the patient to decide on whether or not she wants to have procedures done in order to potentially find answers. I do think it is worthwhile to do the procedures to ensure she does not have a GI tract malignancy as the underlying culprit. She is going to think about it and will follow-up with us in the surgery office if she wants to have the endoscopies performed. Qualifiers: GI bleed type/associated pathology: anorectal hemorrhage Qualified Code(s): K62.5 - Hemorrhage of anus and rectum Subjective Subjective Interval history since last seen: No more bleeding. Patient actually denies ever seeing bright blood and only has seen black stools for quite a while. She denies any current alcohol intake. She says she used to drink a lot in the past but does not drink actively currently. She has never had an upper endoscopy. She says it has been years and years since the colonoscopy. Surgical history includes a hysterectomy and she also thinks she had an explor ation for a cyst when she was very young. She has no complaints at the bedside. No abdominal pain. She has not been having any abdominal pain. She has been going to the bathroom just fine. Exam Narrative Exam Narrative: General: Nontoxic, comfortable and interactive but appears older than her stated age. Neuro: Alert and oriented x 3 Psych: Good mood and affect, good insight and understanding into her conditions Chest: Nonlabored breathing Heart: Regular Abdomen: Soft, nondistended and nontender Objective Last Vital Signs Temp 99.9 F H 01/10/24 07:45 Pulse 74 01/10/24 07:45 Resp 16 01/10/24 07:45 BP 120/64 01/10/24 07:45 Pulse Ox 100 01/10/24 07:45 Laboratory Results - last 24 hr 01/09/24 01/09/24 01/09/24 08:40 11:07 15:00 WBC 7.25 RBC 2.83 L Hgb 8.3 L 7.1 L Hct 26.2 L 22.6 L MCV 93 MCH 29.3 MCHC 31.7 L RDW 16.3 H Plt Count 304 216 MPV 8.6 Immature Gran % 0.1 Neutrophils % 54.1 Lymphocytes % 31.3 Monocytes % 7.3 Eosinophils % 6.5 Basophils % 0.7 Nucleated RBC % 0.0 Absolute Neutrophils 3.92 Absolute Lymphocytes 2.27 Absolute Monocytes 0.53 Absolute Eosinophils 0.47 Absolute Basophils 0.05 ESR 8 PT 10.5 INR 1.0 APTT 25.5 VBG Lactate 1.8 H Sodium 140 Potassium 4.9 Chloride 104 Carbon Dioxide 29.6 Anion Gap 6.4 BUN 31 H Creatinine 1.3 H Est GFR (CKD-EPI 2020) 44.51 Glucose 133 H Calcium 8.3 L Magnesium 2.2 Total Bilirubin 0.5 Conjugated Bilirubin 0.2 AST 283 H ALT 393 H Alkaline Phosphatase 285 H C-Reactive Protein < 0.50 Total Protein 7.1 Albumin 3.5 Lipase 20 Urine Color Yellow Urine Clarity Clear Urine pH 6.0 Ur Specific [place] 1.015 Urine Protein Negative Urine Ketones Negative Urine Blood Moderate H Urine Nitrite Negative Urine Bilirubin Negative Urine Urobilinogen 0.2 Ur Leukocyte Esterase Negative Urine RBC 3-5 H Urine WBC 0-2 Ur Epithelial Cells Few Urine Crystals Negative Urine Bacteria Negative Urine Casts Negative Urine Mucus Negative Ur Culture Indicated? No Urine Glucose Negative Patient ABO/Rh O Positive Antibody Screen NEGATIVE Crossmatch See Detail 01/09/24 01/10/24 01/10/24 18:15 00:00 06:05 WBC 6.20 RBC 3.40 L Hgb 9.7 L D Cancelled 9.8 L Hct 30.3 L Cancelled 30.5 L MCV 90 MCH 28.8 MCHC 32.1 RDW 16.0 H Plt Count 220 MPV 8.2 Immature Gran % 0.2 Neutrophils % 54.4 Lymphocytes % 29.5 Monocytes % 8.1 Eosinophils % 7.3 Basophils % 0.5 Nucleated RBC % 0.0 Absolute Neutrophils 3.38 Absolute Lymphocytes 1.83 Absolute Monocytes 0.50 Absolute Eosinophils 0.45 Absolute Basophils 0.03 ESR PT INR APTT VBG Lactate Sodium 143 Potassium 4.5 Chloride 107 Carbon Dioxide 28.0 Anion Gap 8.0 BUN 25 H Creatinine 1.1 H Est GFR (CKD-EPI 2020) 54.39 Glucose 101 Calcium 8.5 Magnesium Total Bilirubin 0.6 Conjugated Bilirubin AST 109 H ALT 231 H Alkaline Phosphatase 205 H C-Reactive Protein Total Protein 6.0 L Albumin 3.0 L Lipase Urine Color Urine Clarity Urine pH Ur Specific [place] Urine Protein Urine Ketones Urine Blood Urine Nitrite Urine Bilirubin Urine Urobilinogen Ur Leukocyte Esterase Urine RBC Urine WBC Ur Epithelial Cells Urine Crystals Urine Bacteria Urine Casts Urine Mucus Ur Culture Indicated? Urine Glucose Patient ABO/Rh Antibody Screen Crossmatch Time Spent with Patient Time Spent with Patient: 25-34 minutes Time was spent: preparing to see the patient(eg.review tests), referring, communicating with other health transition of care specialist, indepentently interpreting results, counseling the patient and care coordination
--- NOTE | 2024-01-10 09:46 | INITIAL_ITS ---
Date of service: 01/10/24 Time of Service: 09:46 Care Management Initial Assmt Initial Assessment REASON FOR HOSPITALIZATION:: GI bleed, transaminitis PREVIOUS FUNCTIONAL STATUS/SOCIAL/FAMILY SUPPORTS:: Chelita lives in [place] with her , Bruce. She has a step daughter who lives in [place] and is expecting her first child, which will be their first grandchild. She has a niece who lives locally and is supportive. She is independent at baseline. CURRENT FUNCTIONAL STATUS:: Chelita was sitting up in her chair when CM met with her. The provider was also in the room, and stated that Chelita is medically cleared to return home today. Chelita is happy to be going home. She stated that she is on chronic O2, and does not have any services in the home. She reported that her does the cleaning and cooking and is very supportive. Her niece will drive her home today when she is ready. CM will continue to follow. ADVANCE DIRECTIVES:: Not on file at [facility]. Has patient been provided with info about the portal/API?: Yes Did the patient sign up for the portal?: No CODE STATUS:: Full Code INSURANCE COVERAGE / FINANCIAL ISSUES:: [employer] CURRENT HOME/COMMUNITY SERVICES/EQUIPMENT:: Home O2, 3-4L at baseline through [employer]. PRIMARY CARE PHYSICIAN:: Humza Varghese POTENTIAL DISCHARGE NEEDS:: Evaluations for further needs, follow up appointments. PATIENT/FAMILY EDUCATION NEEDS:: Review discharge instructions and limitations, discussion of self care needs including ask me three. ANTICIPATED BARRIERS TO DISCHARGE:: None identified. TRANSPORTATION:: Via private vehicle by family. PLAN:: Anticipate Chelita will return home once medically cleared. She will be driven home via private vehicle by family and will follow up with her PCP and discharge plan of care. CM will continue to follow. PFSH All Active Problems (Updated 01/09/24 @ 17:44 by Alfredo Bain MD) DVT prophylaxis (Acute) Discharge planning issues (Acute) GI bleeding (Chronic) Former cigarette smoker (Acute) Chronic hypoxic respiratory failure (Acute) Polysubstance abuse (Acute) Pneumonia (Acute) Nicotine dependence (Acute) Joint pain (Acute) Dyslipidemia (Acute) Diabetes mellitus (Chronic) COPD (chronic obstructive pulmonary disease) (Chronic) Benign essential hypertension (Acute) Anemia (Chronic) ADHD (Acute) Acute respiratory failure with hypercapnia (Acute) with hypoxia Abnormal weight loss (Acute) Medical History (Updated 01/09/24 @ 17:44 by Alfredo Bain MD) COVID-19 Hx of mammogram 05/30/2011 Surgical History (Updated 11/12/23 @ 11:33 by Vandana Leger) History of cholecystectomy History of appendectomy Hx of total hysterectomy 11/09/98 History of colonoscopy 02/10/07 Cataract cataract surgery left eye 09/29/13 Family History (Updated 11/12/23 @ 11:16 by Vandana Leger) Sister Coronary arteriosclerosis Diabetes HLP (hyperkeratosis lenticularis perstans) History of cancer Mother Myocardial infarction History of cancer Father History of cancer Myocardial infarction Social History (Updated 11/12/23 @ 11:12 by Vandana Leger) Smoking/Tobacco Use Status: Former Tobacco Use Smoking risk assessment performed?: Yes Alcohol Intake: former Details: Quit in 2010.Hx of ETOH abuse. Drug use: Never Housing: apartment Additional Social history: Former tobacco user:1/2ppd Pt states hasn't smoked in 4 days. Comments started at age 12. 1.5ppd>30yrs SDOH(Care Management) Screening Will the Patient Participate in the Screening?: Yes Do you worry about having a steady place to live?: no In the past 12 months, have you had to go without electric, gas, oil or water in your home?: no Have you or anyone in your house had to go without enough food to eat?: no Has lack of transportation kept you from medical appointments or from doing things needed for daily living?: yes Has anyone in your support network made you feel unsafe for any reason?: no Health Related Social Needs Health related social needs: transportation insecurity(Z59.82)
--- NOTE | 2024-01-10 10:11 | NUR.NOTE ---
Accessed pt chart to view the MAR done at ED visit. Nursing Note:
[2024-01-10] MEDS: Pantoprazole 40 MG VIAL IVP (11:43)
[2024-01-10 11:57] VITALS: BP 112/60; PULSE 71; RESP 17; TEMP 37.2; O2SAT 99
--- NOTE | 2024-01-10 11:57 | CMDISCH_ITS ---
Date of service: 01/10/24 Time of Service: 11:57 LACE Index Scoring Tool Questions: Length of Stay (in days): 1 Was the patient admitted via the E.D.?: Yes Comorbidities: Diabetes w/o Complication and Chronic Pulmonary Disease E.D. Visits: 0 Answers: Total Score: 7 Risk of Readmission: Low Risk Care Management Discharge Plan Reason for Hospitalization: GI bleed, transaminitis Discharge Plan: Chelita will return home with no new services, and a resumption of her home O2 therapy through [email or web address]. Her niece will drive her home via private vehicle. She will follow up with her PCP and discharge plan of care. She is happy to be going home. Patient/Family Education Needs: Review discharge instructions and limitations, discussion of self care needs including ask me three. SDOH Health Related Social Needs: Health related social needs transpo insecurity Health related social needs: transportation insecurity(Z59.82)
--- NOTE | 2024-01-10 12:11 | DSE_ITS ---
Date of service: 01/10/24 Time of Service: 12:11 DS: Diagnosis Discharge Diagnosis (1) GI bleeding: Status: Chronic (2) Diabetes mellitus: Status: Chronic (3) COPD (chronic obstructive pulmonary disease): Status: Chronic (4) Benign essential hypertension: Status: Acute Discharge Plan Disposition Patient Disposition: Home Condition: Stable Discharge Details Reason For Visit: GI bleed,transaminitis Admit Date/Time: 01/09/24 12:15 Admit Provider: Alfredo Bain Attending Provider: Alfredo Bain Primary Care Provider: Humza Varghese Hospital Course Hospital Course: This is a 68-year-old female patient who presented to the emergency department with episodes of melanotic stool. Her workup in the emergency department did show a hemoglobin of 8 which did drop to 7.1 after receiving IV fluids. She did receive 2 units of packed red blood cells. She had no further bleeding here she was also started on a PPI. Surgical consultation was obtained she remained hemodynamically stable overnight with a stable H&H. Her diet was advanced and she did tolerate a regular diet. Surgical recommendations are for outpatient colonoscopy. She will continue PPI at discharge and monitor for ongoing bleeding and return sooner if needed. Referral to surgical services placed patient is feeling improved and is looking forward to going home. Discharge to home with no new services close outpatient follow-up discussed with DR Grider Drumright Meds and New Rx's Prescriptions: New pantoprazole [Protonix] 40 mg tablet,delayed release (DR/EC) 40 mg PO DAILY Qty: 30 0RF Continued albuterol sulfate 90 mcg/actuation HFA aerosol inhaler 2 puff inhalation Q6H PRN azithromycin 250 mg tablet 250 mg PO DAILY Qty: 90 4RF Rx Instructions: take one daily for COPD Rubiatri Aerosphere 160-9-4.8 mcg/actuation HFA aerosol inhaler 2 inh inhalation BID 30 Days Qty: 10.7 12RF ipratropium-albuterol 0.5 mg-3 mg(2.5 mg base)/3 mL solution for nebulization 3 ml inhalation QID PRN amlodipine 10 mg tablet 10 mg PO DAILY gabapentin 400 mg capsule 400 mg PO TID valacyclovir [Valtrex] 500 MG tablet 500 mg PO PRN PRN aspirin 81 MG tablet,delayed release (DR/EC) 81 mg PO DAILY simvastatin 40 MG tablet 40 mg PO DAILY metformin 1,000 MG tablet 1,000 mg PO BID lisinopril 5 MG tablet 5 mg PO DAILY duloxetine [Cymbalta] 60 MG capsule,delayed release(DR/EC) 60 mg PO DAILY Discharge Instructions Instructions: Gastrointestinal Bleeding (DC) Additional Instructions: your bleeding has stopped. please watch out for new bleeding, symptoms may include dizziness, shortness or breath or chest pain, in addition to bleeding with stooling. take all medication as prescribed. call to schedule outpatient appointment with surgery for further outpatient management Stand Alone Forms: Nursing Discharge Form Referrals: Tyler Sepulveda MD [ [facility] STAFF PHYSICIAN] - (Please call on Thursday to make a follow up appointment.) Activity:: Activity as Tolerated Equipment/Supplies:: No Equipment Needed Diet:: As Tolerated Discharge Orders Discharge Orders: Discharge Order (Routine); Ordered 01/10/24 Ordered By: Norma Preston Discharge Data Discharge Date/Time-TO BE ENTERED AT DEPARTURE: 01/10/24 15:09 DS: Summary Time Spent with Patient providing and/or coordinating discharge services: Less than 30 minutes Status at Discharge Functional status at discharge: independent ambulation Overall status at discharge: patient is progressing back to baseline Mental Status: mental status grossly normal Speech and Movement: speech and movement normal Mood: congruent mood Affect: normal affect Quality:SDOH Health Related Social Needs: 2 Health related social needs transpo insecurity Exam Const General: cooperative, comfortable and no acute distress Nutritional Appearance: average body habitus Orientation: alert, awake and oriented x3 HENMT Head: normal to inspection, normocephalic and atraumatic Mouth: oral mucosae normal Eyes General: appearance normal, both eyes and all related structures Resp Effort & Inspection: normal respiratory effort Cardio Rate: regular rate Rhythm: regular rhythm GI Inspection: normal to inspection Palpation: soft Auscultation: normal bowel sounds Neuro General: patient alert, patient awake and patient oriented x3 Psych Mental Status: mental status grossly normal Speech and Movement: speech and movement normal Mood: congruent mood Affect: normal affect DS: Data Vitals/I&O Vitals and I&O: Vital Signs Temperature 37.2 C 01/10/24 11:57 Temperature Source Tympanic 01/10/24 11:57 Pulse 71 01/10/24 11:57 Pulse Rhythm Irregular 01/10/24 07:35 Respiratory Rate 17 01/10/24 11:57 Respiratory Effort Normal, Non-Labored 01/10/24 07:35 Respiratory Depth Normal 01/10/24 07:35 Respiratory Pattern Normal 01/10/24 07:35 Blood Pressure 112/60 01/10/24 11:57 Blood Pressure Mean 66 01/09/24 13:16 Pulse Oximetry 99 01/10/24 11:57 Oxygen Delivery Method Nasal Cannula 01/10/24 11:57 Oxygen Flow Rate 3 01/10/24 11:57 Pain Level 0 01/10/24 11:57 Comment RN Notified 01/10/24 03:35 Intake & Output 01/09/24 01/10/24 01/10/24 23:59 11:59 23:59 Intake Total 840 / 1850 250 / 250 Output Total 200 / 200 Balance 640 / 1650 250 / 250 Weight 64 kg Intake: IV 10 / Oral 240 / 240 240 / 240 Blood Product 600 / 600 Rbc Leuko Reduced Unit 300 / 300 [id number] Rbc Leuko Reduced Irradiated 300 / 300 Unit [id number] Output: Urine 200 / 200 Other: Urine Color Yellow Yellow Urine Appearance Clear Clear Urine Odor Normal Comment pT stated she got to use bathroom, only voided. Voiding Methods Toilet Toilet Data Completed and Pending Labs on day of discharge: Labs from last 24 hours 01/10/24 01/10/24 01/09/24 06:05 00:00 18:15 WBC 6.20 RBC 3.40 L Hgb 9.8 L Cancelled 9.7 L D Hct 30.5 L Cancelled 30.3 L MCV 90 MCH 28.8 MCHC 32.1 RDW 16.0 H Plt Count 220 MPV 8.2 Immature Gran % 0.2 Neutrophils % 54.4 Lymphocytes % 29.5 Monocytes % 8.1 Eosinophils % 7.3 Basophils % 0.5 Nucleated RBC % 0.0 Absolute Neutrophils 3.38 Absolute Lymphocytes 1.83 Absolute Monocytes 0.50 Absolute Eosinophils 0.45 Absolute Basophils 0.03 Sodium 143 Potassium 4.5 Chloride 107 Carbon Dioxide 28.0 Anion Gap 8.0 BUN 25 H Creatinine 1.1 H Est GFR (CKD-EPI 2020) 54.39 Glucose 101 Calcium 8.5 Total Bilirubin 0.6 AST 109 H ALT 231 H Alkaline Phosphatase 205 H Total Protein 6.0 L Albumin 3.0 L Urine Color Urine Clarity Urine pH Ur Specific [place] Urine Protein Urine Ketones Urine Blood Urine Nitrite Urine Bilirubin Urine Urobilinogen Ur Leukocyte Esterase Urine RBC Urine WBC Ur Epithelial Cells Urine Crystals Urine Bacteria Urine Casts Urine Mucus Ur Culture Indicated? Urine Glucose Hepatitis A IgM Ab Hep Bs Antigen Hep B Core Total Ab Hepatitis C Antibody Patient ABO/Rh Antibody Screen Crossmatch 01/09/24 01/09/24 15:00 08:40 WBC RBC Hgb Hct MCV MCH MCHC RDW Plt Count MPV Immature Gran % Neutrophils % Lymphocytes % Monocytes % Eosinophils % Basophils % Nucleated RBC % Absolute Neutrophils Absolute Lymphocytes Absolute Monocytes Absolute Eosinophils Absolute Basophils Sodium Potassium Chloride Carbon Dioxide Anion Gap BUN Creatinine Est GFR (CKD-EPI 2020) Glucose Calcium Total Bilirubin AST ALT Alkaline Phosphatase Total Protein Albumin Urine Color Yellow Urine Clarity Clear Urine pH 6.0 Ur Specific [place] 1.015 Urine Protein Negative Urine Ketones Negative Urine Blood Moderate H Urine Nitrite Negative Urine Bilirubin Negative Urine Urobilinogen 0.2 Ur Leukocyte Esterase Negative Urine RBC 3-5 H Urine WBC 0-2 Ur Epithelial Cells Few Urine Crystals Negative Urine Bacteria Negative Urine Casts Negative Urine Mucus Negative Ur Culture Indicated? No Urine Glucose Negative Hepatitis A IgM Ab Pending Hep Bs Antigen Pending Hep B Core Total Ab Pending Hepatitis C Antibody Pending Patient ABO/Rh O Positive Antibody Screen NEGATIVE Crossmatch See Detail PFSH All Active Problems (Updated 01/09/24 @ 17:44 by Alfredo Bain MD) DVT prophylaxis (Acute) Discharge planning issues (Acute) GI bleeding (Chronic) Former cigarette smoker (Acute) Chronic hypoxic respiratory failure (Acute) Polysubstance abuse (Acute) Pneumonia (Acute) Nicotine dependence (Acute) Joint pain (Acute) Dyslipidemia (Acute) Diabetes mellitus (Chronic) COPD (chronic obstructive pulmonary disease) (Chronic) Benign essential hypertension (Acute) Anemia (Chronic) ADHD (Acute) Acute respiratory failure with hypercapnia (Acute) with hypoxia Abnormal weight loss (Acute) Medical History (Updated 01/09/24 @ 17:44 by Alfredo Bain MD) COVID-19 Hx of mammogram 05/30/2011 Surgical History (Updated 11/12/23 @ 11:33 by Vandana Leger) History of cholecystectomy History of appendectomy Hx of total hysterectomy 11/09/98 History of colonoscopy 02/10/07 Cataract cataract surgery left eye 09/29/13 Family History (Updated 11/12/23 @ 11:16 by Vandana Leger) Sister Coronary arteriosclerosis Diabetes HLP (hyperkeratosis lenticularis perstans) History of cancer Mother Myocardial infarction History of cancer Father History of cancer Myocardial infarction Social History (Updated 11/12/23 @ 11:12 by Vandana Leger) Smoking/Tobacco Use Status: Former Tobacco Use Smoking risk assessment performed?: Yes Alcohol Intake: former Details: Quit in 2010.Hx of ETOH abuse. Drug use: Never Housing: apartment Additional Social history: Former tobacco user:1/2ppd Pt states hasn't smoked in 4 days. Comments started at age 12. 1.5ppd>30yrs Time Spent with Patient Time Spent with Patient: <45 minutes Time was spent: preparing to see the patient(eg.review tests), obtaining and/or reviewing separately otained hiistory, ordering medications,tests, procedures, referring, communicating with other health lpn care manager, indepentently interpreting results and counseling the patient
[2024-01-11 09:27] LABS: Hepatitis A Antibody IgM Negative (Negative); Hepatitis B Core Antibody Negative (Negative); Hepatitis B surface Ag Negative (Negative); Hepatitis C Ab w Rflx HCV PCR Negative (Negative)
== END 2024-01-10 15:09 | disposition home or self-care (01) | DRG 378 ==
LOC: ER 13:02 → MS 13:24
PROVIDERS: Admitting Provider Internal Medicine; Emergency Provider Physician Assistant; PCP Family Medicine; Visit Provider Internal Medicine
DX: K62.5 Hemorrhage of anus and rectum (principal); J96.11 Chronic respiratory failure with hypoxia; E11.9 Type 2 diabetes mellitus without complications; J44.9 Chronic obstructive pulmonary disease, unspecified; I10 Essential (primary) hypertension; Z87.891 Personal history of nicotine dependence; F19.10 Other psychoactive substance abuse, uncomplicated; E78.5 Hyperlipidemia, unspecified; D64.9 Anemia, unspecified; Z79.84 Long term (current) use of oral hypoglycemic drugs; Z99.81 Dependence on supplemental oxygen; R74.01 Elevation of levels of liver transaminase levels
CPT/HCPCS: 00123; 36415; 36430; 80053; 80076; 83690; 85652; 86704; 86709; 86803; 86850; 86900; 86901; 86920; 87340; 96361; 96374; 99285; 74174; 81003; 81015; 83605; 83735; 85014; 85018; 85025; 85049; 85610; 85730; 86140; 99223; 99238; J1815; J2470; J3490; P9016